=== PATIENT | male | born 1935 | race Caucasian/White ===

== ENCOUNTER 2017-10-24 07:26 | Day surgery (SDC) | payer MEDICARE, BC ==
[~2017-10-24] VITALS: Ht 177.8 cm; Wt 88.2 kg
[~2017-10-24 07:26] MED LIST: ASPI81TA85 PO; LOSA25TA8 PO; METO1TAB32 PO; NS 1,000 ML IV ONE; OMEP20CA3 PO
[2017-10-24] MEDS ORDERED: PROPOFOL 200 MG/20 ML VIAL As Ordered ONE (07:53)
--- NOTE | 2017-10-24 08:51 | ROOR ---
Patient Name: Bandar Castillo Procedure Date: 10/24/2017 8:31 AM Date of : 1935 Age: 82 Room: [facility] Gender: Male Note Status: Finalized Procedure: Colonoscopy Indications: High risk colon cancer surveillance: Personal history of colonic polyps, Last colonoscopy: September 2014 Providers: Benji MIJARES MD Referring MD: Luis Vuong MD Requesting Provider: Medicines: Monitored Anesthesia Care Complications: No immediate complications. Procedure: Pre-Anesthesia Assessment: - The heart rate, respiratory rate, oxygen saturations, blood pressure, adequacy of pulmonary ventilation, and response to care were monitored throughout the procedure. The Colonoscope was introduced through the anus and advanced to the cecum, identified by appendiceal orifice and ileocecal valve. The colonoscopy was performed without difficulty. The patient tolerated the procedure well. The quality of the bowel preparation was good. Findings: The perianal and digital rectal examinations were normal. Two sessile polyps were found in the ascending colon and cecum. The polyps were 4 mm in size. These polyps were removed with a cold snare. Resection and retrieval were complete. Multiple medium-mouthed diverticula were found in the sigmoid colon. Small Internal Hemorrhoids. The exam was otherwise without abnormality on direct and retroflexion views. Impression: - Two 4 mm polyps in the ascending colon and in the cecum, removed with a cold snare. Resected and retrieved. - Moderate diverticulosis in the sigmoid colon. - Small Internal Hemorrhoids. - The examination was otherwise normal on direct and retroflexion views. Recommendation: - Telephone endoscopist for pathology results in 2 weeks. - If the pathology report reveals adenomatous tissue, then repeat the colonoscopy for surveillance in 3 years. - If the pathology report indicates hyperplastic polyp, then repeat colonoscopy for surveillance based on personal history of previous adenomatous polyps in 5 years. Benji Mijares MD Benji MIJARES MD 10/24/2017 8:51:21 AM This report has been signed electronically. Number of Addenda: 0 Note Initiated On: 10/24/2017 8:31 AM Estimated Blood Loss: Estimated blood loss: none.
[2017-10-24 09:29] VITALS: BP 94/65
== END 2017-10-24 09:45 | disposition home or self-care (01) ==
LOC: M OPP 07:26
PROVIDERS: ATTEND Internal Medicine Gastroenterology
DX: Z12.11 Encounter for screening for malignant neoplasm of colon (principal); Z86.010 Personal history of colon polyps; D12.2 Benign neoplasm of ascending colon; D12.0 Benign neoplasm of cecum; K57.30 Diverticulosis of large intestine without perforation or abscess without bleeding; K64.8 Other hemorrhoids; I10 Essential (primary) hypertension; Z95.2 Presence of prosthetic heart valve; L40.9 Psoriasis, unspecified; Z79.82 Long term (current) use of aspirin; Z79.899 Other long term (current) drug therapy

== ENCOUNTER → 2022-07-12 | Outpatient (REF) | payer MEDICARE, BC ==
[~2022-07-12] MED LIST changes: -ASPI81TA85 PO; +ASPI81TA86 PO; +LOSA25TA13 PO; -LOSA25TA8 PO; -NS 1,000 ML IV ONE; +OMEP1CAP73 PO; -OMEP20CA3 PO
== END ==
LOC: M SFHCDERM 09:01
PROVIDERS: ATTEND Nurse Practitioner Family
DX: D04.4 Carcinoma in situ of skin of scalp and neck (principal)

== ENCOUNTER → 2022-09-12 | Outpatient (REF) | payer MEDICARE, BC | LOC: M SFHCDERM 13:52 | PROVIDERS: ATTEND Nurse Practitioner Family | DX: D04.4 Carcinoma in situ of skin of scalp and neck (principal) ==

== ENCOUNTER 2024-08-14 08:41 | Day surgery (SDC) | payer MEDICARE, BC ==
[~2024-08-14] VITALS: Ht 175.3 cm; Wt 82.4 kg
[~2024-08-14 08:41] MED LIST changes: +ACET32TAB PO; +CARB25TA18 PO; +CILO50TA2 PO; +ELIQ5TAB PO; +PHENYLEPHRINE 10% OPHTH SOL 5ML OS PRN; +RISA150S2 SQ; +ROSU10TA61 PO; +fentaNYL 100 MCG/2 ML INJECTION As Ordered ONE
[2024-08-14] MEDS: PHENYLEPHRINE 2.5% OPHTH SOL 2ML OS SCH (09:16)
[2024-08-14] MEDS: TROPICAMIDE 1% OPHTH SOLN 15ML OS SCH (09:16)
[2024-08-14] MEDS: OFLOXACIN 0.3 % (OCUFLOX) OPTH SOL 5ML OS ONE (09:16)
[2024-08-14] MEDS: ATROPINE SULFATE 1% OPHTH SOLN 2ML BTL OS SCH (09:16)
[2024-08-14] MEDS: LIDOCAINE 3.5 % 1ML OPHTH TOPICAL GEL OU ONE (09:46)
[2024-08-14] MEDS: CEFUROXIME 1MG/0.1ML INTRACAMERAL INJ As Ordered ONE (10:03)
[2024-08-14] MEDS: BSS IRRIG/VANCO(10MG)/TOBRA(5MG)/EPINEPH(1:1000-0.5CC)500ML BAG-ORONLY As Ordered ONE (10:15)
[2024-08-14] MEDS: LIDOCAINE 1% SDV 5ML VIAL As Ordered ONE (10:15)
[2024-08-14 10:20] VITALS: BP 184/103; TEMP 97.9; O2SAT 98
== END 2024-08-14 10:36 | disposition home or self-care (01) ==
LOC: M SDC 08:41
PROVIDERS: ATTEND Ophthalmology
DX: H25.12 Age-related nuclear cataract, left eye (principal); I10 Essential (primary) hypertension; E78.5 Hyperlipidemia, unspecified; K21.9 Gastro-esophageal reflux disease without esophagitis; L40.9 Psoriasis, unspecified; G20.C Parkinsonism, unspecified; Z79.01 Long term (current) use of anticoagulants; Z79.899 Other long term (current) drug therapy; I73.9 Peripheral vascular disease, unspecified
CPT/HCPCS: 66984; 92015; J0697; J3010; V2788